=== PATIENT | female | born 1970 | race Two or more races ===

== ENCOUNTER 2023-08-02 15:05 | Outpatient (CLI) | payer OTHER, SELFPAY | END 2023-08-02 15:06 | disposition home or self-care (01) | LOC: NFLDREF 08-05 12:35 | PROVIDERS: Visit Provider Registered Nurse | DX: N30.00 Acute cystitis without hematuria (principal); B96.20 Unspecified Escherichia coli [E. coli] as the cause of diseases classified elsewhere | CPT/HCPCS: 87086; 87186 ==

== ENCOUNTER 2023-08-10 08:41 | Outpatient (CLI) | payer OTHER, SELFPAY ==
--- OUTSIDE RECORDS SUMMARY | 2023-08-10 08:45 | XMS_ITS | Clinical Summary ---
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 During nonbusiness hours, please contact our Tra[facility] at .[facility] Allergies No known active allergies Medications Medications may not be up to date as of this document. Always verify current medications with the patient. No known medications Social History Tobacco Use Types Packs/Day Years Used Date Smoking Tobacco: Never Smokeless Tobacco: Never Sex and Gender Information Value Date Recorded Sex Assigned at Not on file Gender Identity Not on file Sexual Orientation Not on file Obstetrics History Last Filed Vital Signs Vital Sign Reading Time Taken Comments Blood Pressure - - Pulse - - Temperature 36.8 ??C (98.2 ??F) 09/23/2018 12:30 PM C DT Respiratory Rate - - Oxygen Saturation - - Inhaled Oxygen Concentration - - Weight - - Height - - Body Mass Index - - Plan of Treatment Health Maintenance Due Date Last Done Comments COVID-19 Vaccine (#1) 07/02/1971 DEPRESSION/ANXIETY PHQ4 1982 CERVICAL CANCER SCREENING 1988 LIPID SCREEN 1988 WELLNESS VISIT 1988 DTaP/Tdap/Td Vaccine (1 - Tdap) 1989 PERTUSSIS 1989 MAMMOGRAM 2010 COLONOSCOPY 01/01/2016 DIABETES SCREENING 01/01/2016 SHINGLES VACCINE (SHINGRIX) (1 of 2) 2020 INFLUENZA (#1) 2023 05/02/2018, 05/03/2017 PNEUMOCOCCAL AGES 0-64 YEARS Aged Out No longer eligible based on patient's age to complete this topic POLIO (IPV) Vaccine Aged Out No longe r eligible based on patient's age to complete this topic
== END 2023-08-10 08:42 | disposition home or self-care (01) ==
PROVIDERS: PCP Family Medicine; Visit Provider Family Medicine
DX: I10 Essential (primary) hypertension (principal); R53.83 Other fatigue; E66.9 Obesity, unspecified
CPT/HCPCS: 80053; 80061; 84443

== ENCOUNTER 2024-09-05 13:23 | Outpatient (CLI) | payer BC, SELFPAY | END 2024-09-05 13:24 | disposition home or self-care (01) | LOC: NFLDREF 09-07 01:55 | PROVIDERS: PCP Family Medicine; Referring Provider Family Medicine; Visit Provider Nurse Practitioner Family | DX: N30.00 Acute cystitis without hematuria (principal); B96.20 Unspecified Escherichia coli [E. coli] as the cause of diseases classified elsewhere | CPT/HCPCS: 87086 ==

== ENCOUNTER 2024-12-14 08:45 | Outpatient (CLI) | payer BC, SELFPAY | END 2024-12-14 08:46 | disposition home or self-care (01) | LOC: NFLDREF 12-16 05:38 | PROVIDERS: Visit Provider Physician Assistant | DX: R30.0 Dysuria (principal) | CPT/HCPCS: 87086; 87186 ==

== ENCOUNTER 2025-01-20 08:41 | Outpatient (CLI) | payer BC, SELFPAY | END 2025-01-20 08:42 | disposition home or self-care (01) | LOC: NFLDREF 01-22 14:40 | DX: N30.01 Acute cystitis with hematuria (principal); B96.20 Unspecified Escherichia coli [E. coli] as the cause of diseases classified elsewhere | CPT/HCPCS: 87086 ==